=== PATIENT | male | born 1965 | race Caucasian/White ===

== ENCOUNTER → 2016-11-13 | Outpatient (CLI) | payer OTHER | LOC: FIMAGING 15:48 | PROVIDERS: ATTEND Orthopaedic Surgery | DX: M79.662 Pain in left lower leg (principal) ==

== ENCOUNTER 2016-11-15 18:12 | Emergency (ER) | payer OTHER ==
--- NOTE | 2016-11-15 18:49 | EDPHY ---
H & P Stated Complaint: L leg swelling,hot,painful. Surg R knee 9 days ago;had US here Thurs Source: Patient - Personal History Current Tetanus Diphtheria and Acellular Pertussis (TDAP): Yes - Medical/Surgical History Other PMH: GERD. bad knees. barrett cyst. ?ADD - Social History Smoking Status: Never smoked Time Seen by Provider: 11/15/16 18:36 HPI/ROS: CHIEF COMPLAINT: Left calf pain with swelling HISTORY OF PRESENT ILLNESS: This is a 51-year-old male presenting to the emergency department complaining of left calf pain with swelling. Patient is status post surgery from 11/06/2016 for left meniscus repair and barrett cyst removal. Patient has been going to physical therapy has not any complications prior to several days ago. Patient stated he started having swelling with calf pain several days ago has been seen physical therapy, increased pain to left calf with tenderness on palpation and redness noted. Patient is minimal weight- bearing came in on crutches. Denies any shortness of breath or chest pain. [facility] Dr. Pruitt REVIEW OF SYSTEMS: Constitutional: No fever, no chills. Eyes: No discharge. ENT: No sore throat. Cardiovascular: No chest pain, no palpitations. Respiratory: No cough, no shortness of breath. Gastrointestinal: No abdominal pain, no vomiting. Genitourinary: No dysuria Musculoskeletal: No back pain. Left calf pain with swelling and redness Skin: No rashes. Neurological: No headache. (Nicole Du) - Physical Exam Exam: General Appearance: Alert, no distress. Eyes: Pupils equal and round no pallor or injection. ENT, Mouth: Mucous membranes moist. Respiratory: Nonlabored respiratory effort Cardiovascular: Regular rate and rhythm. Gastrointestinal: Abdomen is soft and nontender, no masses Neurological: No focal deficits Skin: Warm and dry, no rashes. Musculoskeletal: Neck is supple nontender. Extremities: Left calf tenderness on palpation erythemic with swelling measuring 38 cm/ right calf 35 cm. full range of motion with pain. Incision sites are well approximated no erythema noted Psychiatric: Patient is oriented X 3, there is no agitation. (Nicole Du) Constitutional: Initial Vital Signs Temperature (C) 36.6 C 11/15/16 18:20 Heart Rate 76 11/15/16 18:20 Respiratory Rate 18 11/15/16 18:20 Blood Pressure 130/84 H 05/06/17 18:20 O2 Sat (%) 97 11/15/16 18:20 O2 Delivery Mode Room Air Allergies/Adverse Reactions: Penicillins Allergy (Intermediate, Verified 11/15/16 18:26) Hives Home Medications: Medication Instructions Recorded Diazepam [Valium 5 MG (*)] 5 mg PO 11/15/16 Medical Decision Making - Diagnostics Imaging Results: Imaging Impressions Extremity Venous Study 11/15/16 18:48 Impression: 1. No deep venous thrombosis left leg. 2. Left popliteal fossa complex fluid collection measuring 5.3 x 5.4 x 2.1 cm which may represent hematoma or complex Barrett's cyst. 3. Minimal superficial thrombophlebitis in the left greater saphenous vein near the knee region. Findings and recommendations discussed with Emergency Department physician, Nicole Du NP at 20:01 hour, 11/15/2016. Final report concurs with initial preliminary interpretation. ED Course/Re-evaluation: The patient was evaluated and managed by the [facility]. My cosignature indicates that I reviewed the chart and I agree with the findings and plan of care as documented. I am the secondary supervising physician. (Charo Norman) Discussed the plan of care: CBC, CMP, ultrasound to rule out DVT 2049: Spoke with Dr. Pruitt, patient put on aspirin prophylaxis daily use warm compresses to his left calf and follow-up in his office on Thursday. Discussed discharge instructions with patient. Discharge home---> stable (Nicole Du) Differential Diagnosis: Other differential diagnosis considered but not limited to DVT, cellulitis postoperative abscess (Nicole Du) - Data Points Laboratory Results: Laboratory Results 11/15/16 19:30 11/15/16 19:30 11/15/16 11/15/16 19:30 19:30 WBC 7.22 10^3/uL 10^3/uL (3.80-9.50) RBC 4.63 10^6/uL 10^6/uL (4.40-6.38) Hgb 14.0 g/dL g/dL (13.7-17.5) Hct 40.0 % % (40.0-51.0) MCV 86.4 fL fL (81.5-99.8) MCH 30.2 pg pg (27.9-34.1) MCHC 35.0 g/dL g/dL (32.4-36.7) RDW 12.2 % % (11.5-15.2) Plt Count 214 10^3/uL 10^3/uL (150-400) MPV 10.6 fL fL (8.7-11.7) Neut % (Auto) 61.1 % % (39.3-74.2) Lymph % (Auto) 26.9 % % (15.0-45.0) Gooding % (Auto) 8.6 % % (4.5-13.0) Eos % (Auto) 2.6 % % (0.6-7.6) Baso % (Auto) 0.7 % % (0.3-1.7) Nucleat RBC Rel Count 0.0 % % (0.0-0.2) Absolute Neuts (auto) 4.41 10^3/uL 10^3/uL (1.70-6.50) Absolute Lymphs (auto) 1.94 10^3/uL 10^3/uL (1.00-3.00) Absolute Monos (auto) 0.62 10^3/uL 10^3/uL (0.30-0.80) Absolute Eos (auto) 0.19 10^3/uL 10^3/uL (0.03-0.40) Absolute Basos (auto) 0.05 10^3/uL 10^3/uL (0.02-0.10) Absolute Nucleated RBC 0.00 10^3/uL 10^3/uL (0-0.01) Immature Gran % 0.1 % % (0.0-1.1) Immature Gran # 0.01 10^3/uL 10^3/uL (0.00-0.10) Sodium 138 mEq/L mEq/L (134-144) Potassium 4.3 mEq/L mEq/L (3.5-5.2) Chloride 102 mEq/L mEq/L (97-110) Carbon Dioxide 25 mEq/l mEq/l (22-31) Anion Gap 11 mEq/L mEq/L (8-16) BUN 23 mg/dL mg/dL (7-23) Creatinine 0.9 mg/dL mg/dL (0.7-1.3) Estimated GFR > 60 Glucose 89 mg/dL mg/dL (70-100) Calcium 9.7 mg/dL mg/dL (8.5-10.4) Medications Given: Discontinued Medications Aspirin (Aspirin) 325 mg PO EDNOW ONE Stop: 11/15/16 20:59 Last Admin: 11/15/16 21:05 Dose: 325 mg Departure - Departure Disposition: Home, Routine, Self-Care Clinical Impression: Pain of left calf, Postoperative pain Condition: Good Instructions: Knee Pain (ED) Additional Instructions: Discussed discharge instructions 1. I spoke with Dr. Pruitt, recommend aspirin prophylactic daily, warm compresses to left calf 2. Continue using crutches 3. Follow up in his office on Thursday 4. If any symptoms worsen return to the emergency department Referrals: Wilfred Morales, [Primary Care Provider] - As per Instructions
[2016-11-15 19:38] LABS: % IMMATURE GRANULYOCYTES 0.1 % (0.0-1.1); ABSOLUTE IMMATURE GRANULOCYTES 0.01 10^3/uL (0.00-0.10); ADD DIFF? NO; ADD MORPH? NO; ADD SCAN? NO; ATYPICAL LYMPHOCYTE FLAG 10 (0-99); FRAGMENT RBC FLAG 0 (0-99); LEFT SHIFT FLG 0 (0-99); LIPEMIA HEMOLYSIS FLAG 90 (0-99); MEAN CELL HEMOGLOBIN 30.2 pg (27.9-34.1); MEAN CELL VOLUME 86.4 fL (81.5-99.8); MEAN PLATELET VOLUME 10.6 fL (8.7-11.7); PLATELET CLUMPS FLAG 10 (0-99); PLATELET COUNT 214 10^3/uL (150-400); RED BLOOD CELL COUNT 4.63 10^6/uL (4.40-6.38); RED CELL DISTRIBUTION WIDTH 12.2 % (11.5-15.2)
[2016-11-15 19:57] LABS: ANION GAP 11 mEq/L (8-16); CALCIUM 9.7 mg/dL (8.5-10.4); CARBON DIOXIDE 25 mEq/l (22-31); CHLORIDE 102 mEq/L (97-110); CREATININE 0.9 mg/dL (0.7-1.3); GLOMERULAR FILTRATION RATE > 60; GLUCOSE 89 mg/dL (70-100); POTASSIUM 4.3 mEq/L (3.5-5.2); SODIUM 138 mEq/L (134-144)
[2016-11-15] MEDS ORDERED: ASPIRIN 325 MG TAB PO ONE (20:58)
[2016-11-15 21:06] VITALS: BP 118/74; PULSE 66; RESP 16; TEMP 97.7; O2SAT 94
== END 2016-11-15 21:21 | disposition home or self-care (01) ==
DX: M79.605 Pain in left leg (principal); G89.18 Other acute postprocedural pain